=== PATIENT | male | born 1995 | race Hispanic/Latino ===

== ENCOUNTER 2019-05-25 21:31 | Emergency (ER) | payer OTHER ==
[2019-05-25 22:09] LABS: RAPID GROUP A STREP NEGATIVE (NEGATIVE)
[2019-05-25] MEDS ORDERED: IPRATROPIUM/ALBUTEROL SULFATE 3 ML SOLUTION IH ONE (22:18)
== END 2019-05-25 23:02 | disposition home or self-care (01) ==
LOC: EDH 21:31
DX: B34.9 Viral infection, unspecified (principal)
CPT/HCPCS: 71046; 87804; 87880; 94640